=== PATIENT | female | born 1960 | race Caucasian/White ===

== ENCOUNTER → 2017-05-14 | Outpatient (CLI) | payer BC | LOC: MAMMO 14:37 | DX: Z12.31 Encounter for screening mammogram for malignant neoplasm of breast (principal); N64.4 Mastodynia | CPT/HCPCS: G0202 ==

== ENCOUNTER → 2018-05-13 | Outpatient (CLI) | payer BC | LOC: RAD 16:45 | DX: Z12.2 Encounter for screening for malignant neoplasm of respiratory organs (principal); Z80.1 Family history of malignant neoplasm of trachea, bronchus and lung; Z87.891 Personal history of nicotine dependence ==

== ENCOUNTER → 2018-06-04 | Outpatient (CLI) | payer BC | LOC: MAMMO 16:00 | DX: Z12.31 Encounter for screening mammogram for malignant neoplasm of breast (principal) ==

== ENCOUNTER → 2019-06-18 | Outpatient (CLI) | payer BC | LOC: MAMMO 08:24 | DX: Z12.31 Encounter for screening mammogram for malignant neoplasm of breast (principal) ==

== ENCOUNTER 2019-06-30 16:00 | Outpatient (RCR) | payer BC | END 2019-06-30 16:30 | disposition home or self-care (01) | LOC: PT 16:00 | DX: Z00.00 Encounter for general adult medical examination without abnormal findings (principal); Z12.31 Encounter for screening mammogram for malignant neoplasm of breast; N91.2 Amenorrhea, unspecified; M54.9 Dorsalgia, unspecified; M79.605 Pain in left leg ==

== ENCOUNTER → 2020-06-21 | Outpatient (CLI) | payer BC | LOC: MAMMO 13:00 | DX: Z12.31 Encounter for screening mammogram for malignant neoplasm of breast (principal) ==

== ENCOUNTER → 2021-07-19 | Outpatient (CLI) | payer BC | LOC: MAMMO 15:15 | DX: Z12.31 Encounter for screening mammogram for malignant neoplasm of breast (principal) ==

== ENCOUNTER → 2021-08-01 | Outpatient (REF) | LOC: LAB 08:47 | DX: Z00.00 Encounter for general adult medical examination without abnormal findings (principal); E78.5 Hyperlipidemia, unspecified ==

== ENCOUNTER → 2021-08-01 | Outpatient (CLI) | payer BC | LOC: LAB 08:43 → RAD 08:43 | DX: M25.552 Pain in left hip (principal) ==